=== PATIENT | female | born 1965 | race African-American/Black ===

== ENCOUNTER → 2019-03-04 | Day surgery (SDC) | payer BC ==
[~2019-03-04] MED LIST: AMLO5TAB10 PO; ASCO1TAB14 PO; ASPI-630 PO; FERR325T14 PO; HYDR12.575 PO; IV RINGERS,LACTATED 1000ML 1,000 ML IV SCH; LIDOCAINE 2% PF 5 ML VIAL. ONE; MULT-658 PO; PROPOFOL 20 ML IV ONE
--- NOTE | 2019-03-04 07:55 | CONS ---
DATE OF CONSULTATION: 03/04/2019 REFERRING PHYSICIAN: Sasha Mckee PA-C REASON FOR CONSULTATION: Screening. HISTORY OF PRESENT ILLNESS: This is a 53-year-old -[place] female whose past medical history is significant for hypertension, seen for screening colon exam. Bowel habits are regular without diarrhea or constipation. There has been no melena and/or hematochezia. Weight and appetite are stable. Family history is unrevealing for colon polyps or colon cancer. She is otherwise without additional complaints. PAST MEDICAL HISTORY: Significant for hypertension and anemia. ALLERGIES: None. MEDICATIONS: Include amlodipine, ascorbic acid, aspirin, ferrous sulfate, hydrochlorothiazide and multivitamins. FAMILY AND SOCIAL HISTORY: Significant for heart attacks with her mother. Colon polyps with her brother. PAST SURGICAL HISTORY: Significant for sebaceous cyst removals. REVIEW OF SYSTEMS: HEENT: There is no decrease in visual acuity issues. CARDIAC: There is a history of hypertension. PULMONARY: No shortness breath, productive cough, or asthma. RENAL: No dysuria, frequency or hematuria. NEUROLOGIC: No stroke, migraine or neuropathy. PSYCHIATRIC: No mood swings, depression or insomnia. DERMATOLOGIC: No skin rashes or pruritus. HEMATOLOGIC: No bleeding, bruising or coagulopathy. MUSCULOSKELETAL: No history of osteoarthrosis, arthralgias or myalgias. PHYSICAL EXAMINATION: GENERAL: Reveals a well-nourished, well-developed -[place] female who is alert and cooperative, in no acute distress. VITAL SIGNS: Temperature 97.5, pulse 77, respiratory rate is 18. HEENT: Normocephalic, atraumatic head. Pupils and extraocular muscles are not tested. Sclerae anicteric. NECK: Supple. LUNGS: Clear. CARDIOVASCULAR: Reveals an S1, S2 without S3, S4 or appreciable murmur. ABDOMEN: Reveals a soft abdomen, normal bowel sounds, without appreciable hepatosplenomegaly. EXTREMITIES: Reveals no cyanosis, clubbing or edema. IMPRESSION: Colorectal screening is warranted at this time. Risks and benefits of procedure including risks of hemorrhage and perforation have been discussed. The patient is willing to proceed at this time. Thank Dr. Mckee for allowing us to consult and participate in this patient's care. TA NEWELL MD DR: MAXWELL/krunal JOB#: [id number] / [id number] SASHA Liu PA-C
[2019-03-04 07:56] VITALS: BP 118/74
--- NOTE | 2019-03-07 23:06 | PATHOLOGY ---
[facility] Accession Number: [id number] . 01 Material submitted: . PART A: sigmoid colon - SIGMOID POLYP PART B: colon - TRANSVERSE COLON POLYP. Modifiers: transverse . 01 Clinical history: . Screening . 02 Diagnosis: A. "Sigmoid polyp", biopsy: - Tubular adenoma; no high-grade dysplasia. . B. "Transverse colon polyp", biopsy: - Colonic mucosa with focal hyperplastic change, most consistent with hyperplastic polyp. (CLW:pit; 03/07/2019) QTP 03/07/2019 1230 Local . 02 Electronically signed: . Carolina Lorenz MD, Pathologist NPI- [id number] . 01 Gross description: . A. Received in formalin labeled "Arpit, Jy[place], sigmoid polyp," are 4 segments of rivera soft tissue measuring 1.0 x 0.8 x 0.2 cm in aggregate dimensions and ranging from 0.3 to 0.4 cm in maximum dimension. The specimen is submitted entirely in cassette A1. . B. Received in formalin labeled "Arpit, [place], transverse polyp," is a single segment of rivera soft tissue measuring 0.5 cm in maximum dimension. The specimen is entirely submitted in cassette B1. (TSD; 03/04/2019) TOB/TOB 03/04/2019 2137 Local . 02 Pathologist provided ICD-10: D12.5, K63.5 . 02 CPT . 703485, [id number] Specimen Comment: A courtesy copy of this report has been sent to [phone], [phone] Specimen Comment: 1942 Specimen Comment: Report sent to / DR GARCIA Performed at: [address], [place], [place] [id number] MD Yonis Caruso MD Phone: [phone] Performed at: [address] [id number] MD Michele Link MD Phone: [phone]
== END ==
LOC: ENDOS 05:54
PROVIDERS: ATTEND Internal Medicine Gastroenterology
DX: Z12.11 Encounter for screening for malignant neoplasm of colon (principal); D12.5 Benign neoplasm of sigmoid colon; I10 Essential (primary) hypertension; D64.9 Anemia, unspecified; K64.0 First degree hemorrhoids; Z90.710 Acquired absence of both cervix and uterus; Z98.51 Tubal ligation status
CPT/HCPCS: 45380; 88305; J2001; J2704; 45384